=== PATIENT | male | born 1995 ===

== ENCOUNTER 2021-06-17 03:26 | Emergency (ER) | payer SELFPAY ==
[2021-06-17 04:01] VITALS: BP 121/73
--- NOTE | 2021-06-17 05:05 | XRay Report ---
LEFT ELBOW 3 VIEW(S) INDICATION / CLINICAL INFORMATION: Laceration under left elbow area COMPARISON: None available. FINDINGS: BONES / JOINT(S): No acute fracture or subluxation. No significant arthritis. SOFT TISSUES: No significant abnormality. ADDITIONAL FINDINGS: None. IMPRESSION: 1. No acute pathology. No radiopaque foreign bodies. Signer Name: Eugene Zuniga II, MD Signed: 06/17/2021 5:00 AM Workstation Name: [id number]
== END 2021-06-17 19:01 | disposition left against medical advice (07) ==
LOC: ED 03:26
DX: S49.92XA Unspecified injury of left shoulder and upper arm, initial encounter (principal); Z53.21 Procedure and treatment not carried out due to patient leaving prior to being seen by health care provider; X58.XXXA Exposure to other specified factors, initial encounter; Y93.89 Activity, other specified; Y92.89 Other specified places as the place of occurrence of the external cause; Y99.8 Other external cause status